=== PATIENT | male | born 1965 | race Caucasian/White ===

== ENCOUNTER 2023-03-05 09:42 | Observation (INO) | payer MEDICAID, SELFPAY ==
[2023-03-05 09:48] VITALS: BP 145/76; PULSE 69; RESP 19; TEMP 36.6; O2SAT 98; BMI 31.1
--- NOTE | 2023-03-05 10:16 | ECG_ITS ---
Test Reason : check cardiac status Blood Pressure : / mmHG Vent. Rate : 069 BPM Atrial Rate : 069 BPM P-R Int : 162 ms QRS Dur : 136 ms QT Int : 464 ms P-R-T Axes : 033 056 -02 degrees QTc Int : 497 ms Sinus rhythm with Premature supraventricular complexes Right bundle branch block Abnormal ECG No previous ECGs available Referred By: Generic ED Physician Electronically Signed By:Chinmay Olguin
[2023-03-05 10:29] LABS: MANUAL DIFF FLAG NO
[2023-03-05 10:32] LABS: Basophils Percent Auto 0.1 % (0-2); Eosinophils Absolute Auto 0.2 X10*3/uL (0.0-0.4); Eosinophils Percent Auto 2.2 % (0-4); Hematocrit 32.4 % (42.0-52.0); Hemoglobin 9.4 g/dl (14.0-18.0); Imm Gran Abs Auto 0.05 X10*3/uL (0.00-0.03); Imm Gran Pct Auto 0.6 % (0.0-0.4); Lymphocytes Absolute Auto 0.8 X10*3/uL (1.2-4.9); Lymphocytes Percent Auto 9.2 % (20-40); Mean Corpuscular Hemoglobin 29.5 pg (27.0-33.0); Mean Corpuscular Volume 101.6 fL (80.0-98.0); Mean Platelet Volume 9.6 fL (9.4-12.4); Monocytes Absolute Auto 0.6 X10*3/uL (0.1-1.2); Monocytes Percent Auto 6.3 % (2-11); Neutrophils Absolute Auto 7.1 x10*3/uL (2.0-8.3); Neutrophils Percent Auto 81.6 % (45-73); Platelet Count 139 X10*3/uL (160-400); Red Blood Count 3.19 X10*6/uL (4.60-5.80); Red Cell Distribution Width 19.8 % (11.0-16.0); White Blood Count 8.7 X10*3/uL (4.8-10.8)
[2023-03-05 10:40] LABS: INTERNATIONAL NORM RATIO 0.9 (0.9-1.1); Prothrombin Time 10.5 SEC (10.0-13.1)
[2023-03-05 10:48] VITALS: BP 137/74; PULSE 116; RESP 18; TEMP 36.9; O2SAT 96
--- NOTE | 2023-03-05 10:49 | PC.NURSE ---
Alert and oriented. 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 States is due for treatment today but does not have anywhere to go to get dialyisis. VSS. states that he feels fine is just worried about missing the treatment. is a new dialysis patient (started 3 weeks ago). Reports has full supply of all medications he was taking in [place].
[2023-03-05 10:58] LABS: Anion Gap 15 (12-20); Blood Urea Nitrogen 61 mg/dL (9-16); Carbon Dioxide 24 mmol/L (22-29); Chloride 107 mmol/L (96-108); Creatinine Clr Calc Pharmacy 28.1; Estimated Glomerular Filt Rate 17; Glucose Random 142 mg/dL (60-115); Potassium 5.3 mmol/L (3.3-5.1); Sodium 141 mmol/L (135-145)
--- NOTE | 2023-03-05 11:20 | ED.GENADULT ---
HPI - General Adult General Chief complaint: General Medical Stated complaint: Needs Dialysis Time Seen by Provider: 03/05/23 11:19 Source: patient Mode of arrival: ambulatory Limitations: no limitations History of Present Illness HPI narrative: Patient is a 57 year old assigned male at with a history of CKD on dialysis presenting to the emergency department today requesting to be dialyzed. Patient states that he moved to the area from [place] and has not set up with a production operations manager for his dialysis. Patient states that he feels OK, he just dialyzed on 03/05/2023. Patient denies any dizziness, lightheadedness, abdominal pain, nausea, vomiting, fever, chills, blurry vision, double vision, loss of vision, chest pain, difficulty breathing, shortness of breath, back pain, night sweats, pain with urination, increased urinary frequency, increased urinary urgency, blood in his urine or stool, syncope or a near syncopal episode, recent trauma or falls, bowel incontinence, bladder incontinence, bowel retention, bladder retention, or any other complaints at this time. Relieving factors: none Exacerbating factors: none Associated symptoms: denies other symptoms Treatments prior to arrival: none Related Data Allergies Allergy/AdvReac Type Severity Reaction Status Date / Time No Known Allergies Allergy Verified 03/05/23 09:47 Review of Systems Constitutional: Constitutional: Reports no additional constitutional complaints, Denies chills, Denies fever(s) and Denies night sweats Eyes: Eyes: Reports no additional eye complaints, Denies blurry vision, Denies change in vision, Denies diplopia, Denies eye discharge, Denies loss of vision and Denies eye pain ENT: Denies dizziness Cardiovascular: Cardiovascular: Reports no additional cardiovascular complaints, Denies chest pain, Denies lightheadedness, Denies Loss of Consciousness and Denies dyspnea Respiratory: Respiratory: Reports no additional respiratory complaints and Denies dyspnea Gastrointestinal: Gastrointestinal: Reports no additional gastrointestinal complaints, Denies abdominal pain, Denies melena, Denies hematochezia, Denies change in bowel habits and Denies change in stool character Genitourinary: Genitourinary: Reports no additional male genitourinary complaints, Denies hematuria, Denies oliguria, Denies difficulty urinating, Denies dysuria, Denies urinary frequency, Denies urinary hesitancy, Denies urinary incontinence and Denies urinary urgency Musculoskeletal: Musculoskeletal: Reports no additional musculoskeletal complaints, Denies numbness and Denies tingling Neurologic: Denies dizziness, Denies loss of vision, Denies numbness and Denies tingling Psychiatric: Psychiatric: Reports no additional psychiatric complaints Endocrine: Endocrine: Reports no additional endocrine complaints Hematologic/Lymphatic: Hematologic/Lymphatic: Reports no additional hematologic/lymphatic complaints Allergic/Immunologic: Allergic/Immunologic: Reports no additional allergic/immunologic complaints PMFSH Past Medical History Attestation statement: The following information was validated with the patient. Source: old records reviewed and nursing notes reviewed Social History Social History Alcohol intake: former Smoked in Last 30 Days: No Use of substances other than those prescribed or required for medical reasons: Yes Substance Use Type: Marijuana Substance Use Frequency: Occasionally Advance Directives: Yes Advance Directives Information Provided: Yes Advance Directives on File: No Physical Exam ED Vital Signs: Vital Signs - 24 hr 03/05/23 09:48 03/05/23 10:48 Temperature 98 F 98.5 F Pulse Rate 69 116 H Respiratory Rate 19 18 Blood Pressure 145/76 H 137/74 Pulse Oximetry 98 96 Oxygen Delivery Method Room Air Room Air BMI result Body Mass Index 31.1 Const General: cooperative, no acute distress, alert and awake Nutritional Appearance: well nourished Orientation/consciousness: patient oriented x3 Limitations: no limitations HENMT Head: Yes normal to inspection and Yes atraumatic Ears: hearing grossly normal bilaterally and external ears normal General nose exam: Normal external nose present, no nasal discharge noted and no epistaxis Face and sinus: Yes normal facial exam, No abrasion and No laceration Mouth: Normal oral and palatal mucosa present, no drooling and no muffled voice Eyes General: appearance normal, both eyes and all related structures Periorbital: periorbital findings normal Eyelids: Yes eyelids normal Conjunctivae: conjunctivae normal Pupils: Equal, round and reactive pupils present EOM: EOMs intact bilaterally Neck Neck: Yes normal visual inspection, Yes full ROM and Yes no lymphadenopathy Chest Other: dialysis catheter present to the upper right chest Resp Effort & Inspection: normal respiratory effort and able to speak in complete sentences GI Inspection: Yes normal to inspection Palpation (GI): Soft to palpation, not firm, nontender and no guarding Neuro General: patient oriented x3 and moves all extremities Cranial nerves: Yes Equal, round and reactive pupils present Cognition (Neuro): normal cognition Motor exam (neuro): 5/5 motor strength present throughout Sensory Exam: Normal double simultaneous stimulation for sensation Coordination: [id number] test normal Extrem General: Yes normal to inspection, Yes full ROM and Yes capillary refill normal Psych Appearance: grossly normal Mental Status: mental status grossly normal Affect: normal affect Attitude: cooperative Thought process: Normal thought process present Thought content: Normal thought content present Insight: Good insight present (Psych) Medical Decision Making Medical Decision Making MDM Narrative: Patient is a 57 year old assigned male at with a history of CKD on dialysis presenting to the emergency department today in need of dialysis. Patient's physical exam was unremarkable. Patient's blood work showed an elevated potassium of 5.3, BUN of 61, CR of 3.65, and a hgb of 9.4. I interpret these labs as being consistent with an individual requiring dialysis. I called and spoke to the production operations manager airline reservationist who recommended hospital admission under medicine for dialysis. I spoke to the hospitalist who agreed to admission. Patient's EKG was unremarkable. I explained my physical exam findings as well as all test results to the patient. I answered all questions asked by the patient. Patient verbalized agreement and understanding with this treatment plan and admission. Differential Diagnosis Differential Diagnoses: The differential diagnosis associated with the presentation includes Kidney disease Kidney failure Chronic kidney disease Metabolic acidosis Kidney injury Admission/Observation Consideration of admission/observation: Escalation of care including admission/observation considered Patient to be admitted. Consult Healthcare Provider Management of the patient was discussed with: Hospitalist (agreed to admission.) and Metal Expediter (spoke to production operations manager as noted in the MDM portion of this chart.) Lab Data [facility] Lab Attestation statement: I reviewed the patient's lab results. Patient's labs interpreted in the MDM portion of this chart. 03/05/23 10:25 03/05/23 10:25 Labs: Lab Results 03/05/23 03/05/23 03/05/23 Range/Units 10:25 10:25 10:25 WBC 8.7 (4.8-10.8) X10*3/uL RBC 3.19 L (4.60-5.80) X10*6/uL Hgb 9.4 L (14.0-18.0) g/dl Hct 32.4 L (42.0-52.0) % MCV 101.6 H (80.0-98.0) fL MCH 29.5 (27.0-33.0) pg MCHC 29.0 L (31.0-36.0) g/dl RDW 19.8 H (11.0-16.0) % Plt Count 139 L (160-400) X10*3/uL MPV 9.6 (9.4-12.4) fL Immature Gran % (Auto) 0.6 H (0.0-0.4) % Neut % (Auto) 81.6 H (45-73) % Lymph % (Auto) 9.2 L (20-40) % [place] % (Auto) 6.3 (2-11) % Eos % (Auto) 2.2 (0-4) % Baso % (Auto) 0.1 (0-2) % Lymph # (Auto) 0.8 L (1.2-4.9) X10*3/uL [place] # (Auto) 0.6 (0.1-1.2) X10*3/uL Eos # (Auto) 0.2 (0.0-0.4) X10*3/uL Baso # (Auto) 0.0 (0.0-0.2) X10*3/uL Abs Immat Gran (auto) 0.05 H (0.00-0.03) X10*3/uL Absolute Neuts (auto) 7.1 (2.0-8.3) x10*3/uL Absolute Nucleated RBC 0.000 (0.0-0.012) X10*3/uL Nucleated RBC % (auto) 0.0 (0.0-0.2) /100WBC PT 10.5 (10.0-13.1) SEC INR 0.9 (0.9-1.1) Sodium 141 (135-145) mmol/L Potassium 5.3 H (3.3-5.1) mmol/L Chloride 107 (96-108) mmol/L Carbon Dioxide 24 (22-29) mmol/L Anion Gap 15 (12-20) BUN 61 H (9-16) mg/dL Creatinine 3.65 H (0.5-1.4) mg/dL Estim Creat Clear Calc 28.1 Estimated GFR 17 Random Glucose 142 H (60-115) mg/dL Calcium 9.0 (8.4-10.2) mg/dL Independent Interpretation I performed an independent interpretation of an: EKG Interpretation: Vent. Rate: 069 BPM ? ? Atrial Rate: 069 BPM P-R Int: 162 ms? QRS Dur: 136 ms QT Int: 464 ms ? ? ? P-R-T Axes: 033 056 -02 degrees QTc Int: 497 ms ? Sinus rhythm with Premature supraventricular complexes Right bundle branch block Abnormal ECG No previous ECGs available DD/ 1016 Chronic Conditions Patient?s care impacted by: Other (chronic kidney disease) Critical Care Time Critical Care Time Critical Care Time: Yes Total Critical Care Time: 30 Attestation: I spent 30 minutes of Critical Care Time with this patient. This does not include time spent on separately reported billable procedures. Discharge Plan Discharge Clinical Impression: Chronic kidney disease Patient Disposition: Admitted As Inpatient
--- NOTE | 2023-03-05 13:23 | P.HPHOSP_ITS ---
History of Present Illness Date of Service: 03/05/23 Attending physician on admission: Bong Tran Chief Complaint: Need for dialysis Pt is a 57-year-old male with a PMH significant for?HTN, insulin-dependent diabetes, AFib, COPD, and ESRD on hemodialysis Sat//Sat who presents to the ED in need of dialysis. Pt recently moved to the area on Saturday from [place], [place]. Patient is newly started on hemodialysis the last couple of weeks, last hemodialysis was on Saturday03/02/2023 in [place]. Patient has yet to establish any medical care in the area. Patient currently has no medical complaints. Denies chest pain/pressure, palpitations. No headache, vision changes. Denies shortness of breath. No tremors, seizures. Denies fever, chills nausea, vomiting, diarrhea, abdominal pain. In the ED labs were significant for macrocytic anemia of H&H 9.4/32.4, potassium 5.3, BUN 61, creatinine 3.65. EKG demonstrated sinus rhythm with PVCs and a right bundle branch block with QTc of 497. Pt will be admitted to the hospital for treatment of urgent dialysis. Review of Systems Review of Systems: Patient need of dialysis today Otherwise no acute medical complaints PMFSH Social History Household Members: Family Housing: House Do you presently have visiting nurse or other home services: No Alcohol intake: former Patient Tobacco Use Status: Former Tobacco user Smoked in Last 30 Days: No Use of substances other than those prescribed or required for medical reasons: Yes Substance Use Type: Marijuana Substance Use Type Other:: edibles Substance Use Frequency: Occasionally Currently Displaying Signs/Symptoms of Drug Intoxication Withdrawal: No Any prior treatment program specific to substance use: No Have you been hit, kicked, punched, or otherwise hurt by someone within the past year? If so, by whom?: No Do you feel safe in your current relationship?: No Is there a partner from a previous relationship who is making you feel unsafe now?: No Are you made to feel afraid or neglected: No Advance Directives: Yes Advance Directives Information Provided: Yes Advance Directives on File: No Advance Directives Date on File: 03/05/23 Do you have thoughts of harming others: None Recently lost weight without trying: No service: No Meds Allergies Allergy/AdvReac Type Severity Reaction Status Date / Time No Known Allergies Allergy Verified 03/05/23 09:47 Active Medications: Current Medications Pharmacy Consult (Consult Rx Perform Med Rec) 1 each MISCELLANE ONCE PRN PRN Reason: Consult order Home Medications Medication Instructions Recorded Confirmed Last Taken Type albuterol sulfate 90 mcg/actuation 2 puff inhalation Q6H PRN 03/05/23 03/05/23 Unknown History aerosol inhaler (ProAir HFA) Shortness Of Breath amlodipine 5 mg tablet 5 mg PO DAILY 03/05/23 03/05/23 03/05/23 History apixaban 2.5 mg tablet (Eliquis) 2.5 mg PO BID 03/05/23 03/05/23 03/05/23 History aspirin 81 mg tablet,delayed 81 mg PO DAILY 03/05/23 03/05/23 03/05/23 History release atorvastatin 40 mg tablet 40 mg PO BEDTIME 03/05/23 03/05/23 03/04/23 History cholecalciferol (vitamin D3) 50 50 mcg PO DAILY 03/05/23 03/05/23 03/05/23 History mcg (2,000 unit) tablet cyanocobalamin (vitamin B-12) 1,000 mcg PO DAILY 03/05/23 03/05/23 03/05/23 History 1,000 mcg tablet folic acid 1 mg tablet 1 mg PO DAILY 03/05/23 03/05/23 03/05/23 History guaifenesin 600 mg tablet, 600 mg PO Q12H PRN Cough 03/05/23 03/05/23 03/05/23 History extended release 12 hr insulin detemir U-100 100 unit/mL 10 unit subcut BEDTIME 03/05/23 03/05/23 03/04/23 History subcutaneous solution metoprolol succinate 50 mg 50 mg PO DAILY 03/05/23 03/05/23 03/05/23 History tablet,extended release 24 hr prednisone 10 mg tablet 10 mg PO DAILY 03/05/23 03/05/23 03/05/23 History Physical Exam Vital Signs and Narrative: Vital Signs: Last Vital Signs Temp 98.5 F 03/05/23 10:48 Pulse 116 H 03/05/23 10:48 Resp 18 03/05/23 10:48 BP 137/74 03/05/23 10:48 Pulse Ox 96 03/05/23 10:48 O2 Del Method Room Air 03/05/23 10:48 BMI result Body Mass Index 31.1 Constitutional: Alert, in no acute distress. Mental Status: Oriented to person, place and time. Eyes: Pupils are equal, round, and reactive to light. Ear, Nose, and Throat: Oropharynx clear, mucous membranes moist. Ears and nose without deformities. Trachea midline. Respiratory: Clear to auscultation bilaterally. No wheezing, rales, or rhonchi. Cardiovascular: S1, S2 regular. No murmurs, rubs, or gallops. Gastrointestinal: Abdomen soft, non-tender, non-distended. Normal bowel sounds. Neurologic: Cranial nerves II-XII are grossly intact bilaterally. No focal neurological deficits. Moves all extremities spontaneously. Skin: No rashes or lesions noted. Musculoskeletal: No cyanosis or clubbing. Extremities: No edema. Psychiatric: Normal mood and affect. Results Labs 03/05/23 10:25 03/05/23 10:25 Labs: Laboratory Results - last 24 hr 03/05/23 03/05/23 03/05/23 10:25 10:25 10:25 MCV 101.6 H MCH 29.5 MCHC 29.0 L RDW 19.8 H Plt Count 139 L MPV 9.6 Immature Gran % (Auto) 0.6 H Neut % (Auto) 81.6 H Lymph % (Auto) 9.2 [place] % (Auto) 6.3 Eos % (Auto) 2.2 Baso % (Auto) 0.1 Lymph # (Auto) 0.8 [place] # (Auto) 0.6 Eos # (Auto) 0.2 Baso # (Auto) 0.0 Abs Immat Gran (auto) 0.05 H Absolute Neuts (auto) 7.1 Absolute Nucleated RBC 0.000 Nucleated RBC % (auto) 0.0 PT 10.5 INR 0.9 Anion Gap 15 Estim Creat Clear Calc 28.1 Estimated GFR 17 Random Glucose 142 H Calcium 9.0 Assessment and Plan (1) ESRD (end stage renal disease): Status: Acute Plan Pt is a 57-year-old male with a PMH significant for?HTN, insulin-dependent diabetes, AFib, COPD, and ESRD on hemodialysis Sat//Sat who presents to the ED in need of dialysis. Pt recently moved to the area on Saturday from [place], [place]. Patient is newly started on hemodialysis the last couple of weeks, last hemodialysis was on Saturday03/02/2023 in [place]. Patient has yet to establish any medical care in the area. Patient currently has no medical complaints. Patient will be admitted to the hospital under observation for hemodialysis secondary to ESRD. ESRD on hemodialysis Patient has been receiving dialysis on //Sat, started a few weeks ago Last received dialysis on 03/02/2023 in [place], [place] Patient moved here on Saturday and has not yet established Nephrology care Potassium 5.3, BUN 61, creatinine 3.65 Patient will receive dialysis today Nephrology counsult Pt should establish nephrology/dialysis care in the area outpatient HTN Continue home meds Insulin-dependent diabetes Hold home meds Sliding-scale insulin, Lantus AFib Continue metoprolol, Eliquis COPD Does not appear to be in acute exacerbation Continue home inhalers Full Code Attending:?Dr. Tran DVT Prophylaxis: On Patient will be admitted to the hospital under observation for hemodialysis secondary to ESRD. Time Spent With Patient Time: Total time managing care of this patient today ____ minutes. Quality Stroke Does the patient have a stroke diagnosis?: No VTE Prior VTE?: No VTE Risk Level:: Medical - moderate - high VTE Device Contraindication: Treatment Not Indicated VTE Drug Contraindication: N/A - Med Ordered
--- NOTE | 2023-03-05 13:42 | PC.NURSE ---
Off unit for dialysis at this time.
--- NOTE | 2023-03-05 15:25 | PC.NURSE ---
Report given to accepting unit
[2023-03-05 17:57] VITALS: BP 117/67; PULSE 67; RESP 14; TEMP 36; O2SAT 96
[2023-03-05 18:02] VITALS: BP 129/82; PULSE 94; RESP 15; TEMP 36.8; O2SAT 94
--- NOTE | 2023-03-05 19:23 | PHA.MEDREC ---
Pharmacy Consult ? Medication Reconciliation Pharmacy has completed the medication reconciliation. Pt's twin brother at bedside, had text pictures of patient's med list. Says he gets medications at [facility] however nothing came up in claim history (pt is from [place]). Verified accuracy with patient
[2023-03-05 19:24] VITALS: BP 135/65; PULSE 62; RESP 14; TEMP 36.3; O2SAT 97
--- NOTE | 2023-03-05 19:50 | PC.NURSE ---
Pt admitted from Dialysis. Admission completed. Patient alert and oriented x 4. VSS afebrile. technical instructor applied Sinus rhythm with PVC's. Denies any pain. Right chest permacath noted. No IV access, pt states that he is going home tomorrow and doesn't know why he got admitted in the first place. Refusing IV at this time. Calm and pleasant. Ambulating with steady gait. Denies headache dizziness blurred vision numbness or tingling. Started on diet tolerating well. Call king at bedside, safety maintained. Report given to night RN to follow up.
[2023-03-05 23:26] VITALS: BP 132/62; PULSE 71; RESP 18; TEMP 36.9; O2SAT 95
[2023-03-06 03:05] VITALS: BP 112/55; PULSE 70; RESP 20; TEMP 36.8; O2SAT 95
[2023-03-06 05:41] LABS: HBS Num1 0.06 mIU/mL (0-7.99); HBc Num1 0.09 S/CO (0.00-0.79); HBsAGNum1 0.32 S/CO (0.00-0.99); Hepatitis B Core Antibody Nonreactive (Nonreactive); Hepatitis B Surface Antigen Negative (Negative); ~Hepatitis B Surface Antibody NONREACTIVE (Nonreactive)
[2023-03-06 06:47] LABS: Hematocrit 30.4 % (42.0-52.0); Hemoglobin 9.1 g/dl (14.0-18.0); Mean Corpuscular HGB Conc 29.9 g/dl (31.0-36.0); Mean Corpuscular Hemoglobin 29.5 pg (27.0-33.0); Mean Corpuscular Volume 98.7 fL (80.0-98.0); Mean Platelet Volume 10.1 fL (9.4-12.4); Platelet Count 133 X10*3/uL (160-400); Red Blood Count 3.08 X10*6/uL (4.60-5.80); Red Cell Distribution Width 19.5 % (11.0-16.0); White Blood Count 7.4 X10*3/uL (4.8-10.8)
[2023-03-06 07:08] VITALS: BP 148/78; PULSE 66; RESP 20; TEMP 36.9; O2SAT 94
[2023-03-06 07:13] LABS: Anion Gap 12 (12-20); Blood Urea Nitrogen 43 mg/dL (9-16); Calcium 8.3 mg/dL (8.4-10.2); Carbon Dioxide 24 mmol/L (22-29); Chloride 105 mmol/L (96-108); Creatinine Clr Calc Pharmacy 36.8; Estimated Glomerular Filt Rate 24; Glucose Random 106 mg/dL (60-115); Magnesium 1.7 mg/dL (1.6-2.6); Potassium 4.2 mmol/L (3.3-5.1); Sodium 137 mmol/L (135-145)
[2023-03-06 08:11] LABS: Glucose, Whole Blood 117 mg/dL (60-115)
[2023-03-06] MEDS: Cyanocobalamin (Vitamin B-12) 1,000 MCG TABLET 1000 MCG PO (08:15)
[2023-03-06] MEDS: Cholecalciferol (Vitamin D3) 25 MCG TABLET 50 MCG PO (08:15)
[2023-03-06] MEDS: amLODIPine Besylate 5 MG TABLET PO (08:15)
[2023-03-06] MEDS: Apixaban 2.5 MG TABLET PO ×2 (08:15→22:14)
[2023-03-06] MEDS: Metoprolol Succinate ER 50 MG TAB.ER.24H PO (08:15)
[2023-03-06] MEDS: Aspirin Enteric Coated 81 MG TABLET.DR PO (08:15)
[2023-03-06] MEDS: Folic Acid 1 MG TABLET PO (08:15)
[2023-03-06] MEDS: predniSONE 10 MG TABLET PO (08:15)
[2023-03-06] MEDS: 0.9 % Sodium Chloride Flush 3 ML SYRINGE IVFLUSH (08:16)
--- NOTE | 2023-03-06 08:50 | MHC.CM.PN ---
CM met with Patient at bedside and addressed DICKEY with him, providing Patient with the original and placing a copy on the chart. Patient moved here from [place] on 03/04/2023 and he will need new HD set up prior to dc. Patient is living with his Brother/HCP and [id number] and he is functionally independent. Home with new HD is the goal and CM has initiated and will follow for dc planning. Patient is Covid kary'berto and he has no PCP(CM has provided Patient with a list of area PCPs).
--- NOTE | 2023-03-06 10:39 | P.CONNP_ITS ---
History of Present Illness Reason for Consult Consult date: 03/07/23 Reason for consult: CKD5 Chief Complaint Chief complaint: Dialysis History of Present Illness Narrative: ?57-year-old male with a PMH significant for?HTN, insulin-dependent diabetes, AFib, COPD, and ESRD on hemodialysis Sat//Sat who presents to the ED in need of dialysis. Pt recently moved to the area on Saturday from [place], [place].? Patient is newly started on hemodialysis the last couple of weeks, last hemodialysis was on Saturday03/02/2023 in [place].? Patient has yet to establish any medical care in the area.? Patient currently has no medical complaints He is a history of coronary artery disease and underwent stent placement about 5 years ago. At that time he was diagnosed with diabetes mellitus and hypertension. Along the way he was found to have chronic kidney disease. He has undergone extensive workup including kidney biopsy which reportedly was inconclusive. Renal function has been gradually deteriorating and he was started on dialysis about 3 weeks ago in [facility]. He is a history of diverticulosis and underwent a colostomy. Colostomy has been reversed. He has residual ventral hernia He has moved to this area because he wanted to live with his twin brother in [facility] He underwent dialysis on 03/05/2023 at [facility]. Review of Systems Review of Systems No headache. No nausea vomiting. No abdominal pain. No shortness of breath. No cough. No dysuria urgency or hematuria. No edema. No rash. [facility] Social History Social History Household Members: Family Housing: House Do you presently have visiting nurse or other home services: No Alcohol intake: former Patient Tobacco Use Status: Former Tobacco user Smoked in Last 30 Days: No Use of substances other than those prescribed or required for medical reasons: Yes Substance Use Type: Marijuana Substance Use Type Other:: edibles Substance Use Frequency: Occasionally Currently Displaying Signs/Symptoms of Drug Intoxication Withdrawal: No Any prior treatment program specific to substance use: No Have you been hit, kicked, punched, or otherwise hurt by someone within the past year? If so, by whom?: No Do you feel safe in your current relationship?: No Is there a partner from a previous relationship who is making you feel unsafe now?: No Are you made to feel afraid or neglected: No Advance Directives: Yes Advance Directives Information Provided: Yes Advance Directives on File: No Advance Directives Date on File: 03/05/23 Do you have thoughts of harming others: None Recently lost weight without trying: No service: No Meds Allergies Allergy/AdvReac Type Severity Reaction Status Date / Time No Known Allergies Allergy Verified 03/05/23 09:47 Active Medications: Current Medications Acetaminophen (Acetaminophen 325 Mg Tablet) 650 mg PO Q6H PRN PRN Reason: Pain, Mild (Pain Scale 1-3) Albuterol Sulfate (Albuterol Sulfate 90 Mcg 8 Gm Inhaler) 2 puff INHALE Q6H PRN PRN Reason: Shortness Of Breath Amlodipine Besylate (Amlodipine Besylate 5 Mg Tablet) 5 mg PO DAILY [facility]; Protocol Last Admin: 03/06/23 08:15 Dose: 5 mg Apixaban (Apixaban 2.5 Mg Tablet) 2.5 mg PO BID [facility] Last Admin: 03/06/23 08:15 Dose: 2.5 mg Aspirin (Aspirin Enteric Coated 81 Mg Tablet.Dr) 81 mg PO DAILY [facility] Last Admin: 03/06/23 08:15 Dose: 81 mg Atorvastatin Calcium (Atorvastatin Calcium 40 Mg Tablet) 40 mg PO BEDTIME [facility] Cyanocobalamin (Cyanocobalamin (Vitamin B-12) 1,000 Mcg Tablet) 1,000 mcg PO DAILY [facility] Last Admin: 03/06/23 08:15 Dose: 1,000 mcg Dextrose (Dextrose 50 % 25 Gm/50 Ml Syringe) 25 gm IVPUSH Q15M PRN; Protocol PRN Reason: per Hypoglycemia Standing Ord. Docusate Sodium (Docusate Sodium 100 Mg Capsule) 100 mg PO DAILY PRN PRN Reason: Constipation Folic Acid (Folic Acid 1 Mg Tablet) 1 mg PO DAILY [facility] Last Admin: 03/06/23 08:15 Dose: 1 mg Glucose (Glucose Gel 15 Gm Gel..Gram.) 15 gm PO Q15M PRN; Protocol PRN Reason: per Hypoglycemia Standing Ord. Guaifenesin (Guaifenesin La 600 Mg Tab.Er.12h) 600 mg PO Q12H PRN PRN Reason: Cough Insulin Glargine (Insulin Glargine,Hum.Rec.Anlog 100 Unit/Ml 10 Ml Vial) 7 unit SUBCUT BEDTIME [facility] Insulin Human Lispro (Insulin Lispro 100 Unit/Ml 3 Ml Vial) 0 unit SUBCUT QIDACHS [facility]; Protocol Metoprolol Succinate (Metoprolol Succinate Er 50 Mg Tab.Er.24h) 50 mg PO DAILY [facility]; Protocol Last Admin: 03/06/23 08:15 Dose: 50 mg Ondansetron HCl (Ondansetron Hcl 4 Mg/2 Ml Vial) 4 mg IVPUSH Q8H PRN PRN Reason: Nausea and Vomiting Pharmacy Consult (Consult Rx Perform Med Rec) 1 each MISCELLANE ONCE PRN PRN Reason: Consult order Prednisone (Prednisone 10 Mg Tablet) 10 mg PO DAILY [facility] Last Admin: 03/06/23 08:15 Dose: 10 mg Sodium Chloride (0.9 % Sodium Chloride Flush 3 Ml Syringe) 3 ml IVFLUSH QSHIFT [facility] Last Admin: 03/06/23 08:16 Dose: 3 ml Vitamin D (Cholecalciferol (Vitamin D3) 25 Mcg Tablet) 50 mcg PO DAILY [facility] Last Admin: 03/06/23 08:15 Dose: 50 mcg Home Medications Medication Instructions Recorded Confirmed Last Taken Type albuterol sulfate 90 mcg/actuation 2 puff inhalation Q6H PRN 03/05/23 03/05/23 Unknown History aerosol inhaler (ProAir HFA) Shortness Of Breath amlodipine 5 mg tablet 5 mg PO DAILY 03/05/23 03/05/23 03/05/23 History apixaban 2.5 mg tablet (Eliquis) 2.5 mg PO BID 03/05/23 03/05/23 03/05/23 History aspirin 81 mg tablet,delayed 81 mg PO DAILY 03/05/23 03/05/23 03/05/23 History release atorvastatin 40 mg tablet 40 mg PO BEDTIME 03/05/23 03/05/23 03/04/23 History cholecalciferol (vitamin D3) 50 50 mcg PO DAILY 03/05/23 03/05/23 03/05/23 History mcg (2,000 unit) tablet cyanocobalamin (vitamin B-12) 1,000 mcg PO DAILY 03/05/23 03/05/23 03/05/23 History 1,000 mcg tablet folic acid 1 mg tablet 1 mg PO DAILY 03/05/23 03/05/23 03/05/23 History guaifenesin 600 mg tablet, 600 mg PO Q12H PRN Cough 03/05/23 03/05/23 03/05/23 History extended release 12 hr insulin detemir U-100 100 unit/mL 10 unit subcut BEDTIME 03/05/23 03/05/23 03/04/23 History subcutaneous solution metoprolol succinate 50 mg 50 mg PO DAILY 03/05/23 03/05/23 03/05/23 History tablet,extended release 24 hr prednisone 10 mg tablet 10 mg PO DAILY 03/05/23 03/05/23 03/05/23 History Physical Exam Vital Signs: Last Vital Signs Temp 98.5 F 03/06/23 07:08 Pulse 66 03/06/23 07:08 Resp 20 03/06/23 07:08 BP 148/78 H 03/06/23 07:08 Pulse Ox 94 03/06/23 07:08 O2 Del Method Room Air 03/06/23 07:08 O2 Flow Rate 40 03/05/23 18:02 FiO2 40 03/05/23 18:02 BMI result Body Mass Index 31.1 Comfortable Neck is supple Lung: Air entry equal Heart: S1,S2, normal. No rub Abd: Soft. BS + NS : Alert.No asterexis Ext: 1+ edema Results Lab Results 03/06/23 06:20 03/06/23 06:20 Lab results: Chemistry 03/05/23 03/06/23 10:25 06:20 Sodium 141 137 Potassium 5.3 H 4.2 D Carbon Dioxide 24 24 BUN 61 H 43 H Creatinine 3.65 H 2.79 H Calcium 9.0 8.3 L D Hematology 03/05/23 03/06/23 10:25 06:20 WBC 8.7 7.4 Hgb 9.4 L 9.1 L Plt Count 139 L 133 L Assessment and Plan (1) ESRD (end stage renal disease): Status: Acute (2) Chronic kidney disease: Status: Acute Plan Middle-aged man with a history of hypertension diabetes mellitus coronary disease who was recently started on hemodialysis about 3 weeks ago in [facility] has moved to the area and is in need for dialysis. At this point the exact etiology for renal failure is unclear. 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 In the meantime we will continue with hemodialysis. I will try to arrange for dialysis 3 times a week. Last dialysis was on 03/05/2020 Next dialysis will be tomorrow 03/07/2023. We will watch hemoglobin and use Epogen as per protocol. We will check calcium and phosphorus and use phosphate binder if indicated. I have answer all his questions. Time Spent With Patient Time: Total time managing care of this patient today ____ minutes. Procedures Date of Service Date of Service: 03/07/23
[2023-03-06 10:58] LABS: Glucose, Whole Blood 127 mg/dL (60-115)
[2023-03-06 11:13] VITALS: BP 156/90; PULSE 68; RESP 20; TEMP 37.7; O2SAT 95
--- NOTE | 2023-03-06 14:32 | MHC.CM.PN ---
A referral has been made to [facility] [place]/t Patient's self-pay status.
--- NOTE | 2023-03-06 15:19 | P.PNIM_ITS ---
Subjective Subjective Date of Service: 03/06/23 Interval History: ESRD on hemodialysis. Review of Systems Patient denies any chest pain shortness of breath or abdominal pain or nausea vomiting or fever chills. Physical Exam Vital Signs: Vital Signs: Last Vital Signs Temp 99.9 F 03/06/23 11:13 Pulse 68 03/06/23 11:13 Resp 20 03/06/23 11:13 BP 156/90 H 03/06/23 11:13 Pulse Ox 95 03/06/23 11:13 O2 Del Method Room Air 03/06/23 11:13 O2 Flow Rate 40 03/05/23 18:02 FiO2 40 03/05/23 18:02 BMI result Body Mass Index 31.1 Appearance: Alert.? Oriented X3.? not in distress.? cvs: [id number], [id number] . res: clear to auscultation ,no rhonchii or wheezing abd: no rebound or guarding ,nt, bs present. ext pulses present , no cyanosis . neuro: axo3 , nonfocal. Objective Data Active Medications Acetaminophen (Acetaminophen 325 Mg Tablet) 650 mg PO Q6H PRN PRN Reason: Pain, Mild (Pain Scale 1-3) Albuterol Sulfate (Albuterol Sulfate 90 Mcg 8 Gm Inhaler) 2 puff INHALE Q6H PRN PRN Reason: Shortness Of Breath Amlodipine Besylate (Amlodipine Besylate 5 Mg Tablet) 5 mg PO DAILY [facility]; Protocol Last Admin: 03/06/23 08:15 Dose: 5 mg Documented By: ALEXANDR Apixaban (Apixaban 2.5 Mg Tablet) 2.5 mg PO BID [facility] Last Admin: 03/06/23 08:15 Dose: 2.5 mg Documented By: ALEXANDR Aspirin (Aspirin Enteric Coated 81 Mg Tablet.) 81 mg PO DAILY [facility] Last Admin: 03/06/23 08:15 Dose: 81 mg Documented By: ALEXANDR Atorvastatin Calcium (Atorvastatin Calcium 40 Mg Tablet) 40 mg PO BEDTIME [facility] Cyanocobalamin (Cyanocobalamin (Vitamin B-12) 1,000 Mcg Tablet) 1,000 mcg PO DAILY [facility] Last Admin: 03/06/23 08:15 Dose: 1,000 mcg Documented By: ALEXANDR Dextrose (Dextrose 50 % 25 Gm/50 Ml Syringe) 25 gm IVPUSH Q15M PRN; Protocol PRN Reason: per Hypoglycemia Standing Ord. Docusate Sodium (Docusate Sodium 100 Mg Capsule) 100 mg PO DAILY PRN PRN Reason: Constipation Folic Acid (Folic Acid 1 Mg Tablet) 1 mg PO DAILY [facility] Last Admin: 03/06/23 08:15 Dose: 1 mg Documented By: ALEXANDR Glucose (Glucose Gel 15 Gm Gel..Gram.) 15 gm PO Q15M PRN; Protocol PRN Reason: per Hypoglycemia Standing Ord. Guaifenesin (Guaifenesin La 600 Mg Tab.Er.12h) 600 mg PO Q12H PRN PRN Reason: Cough Insulin Glargine (Insulin Glargine,Hum.Rec.Anlog 100 Unit/Ml 10 Ml Vial) 7 unit SUBCUT BEDTIME [facility] Insulin Human Lispro (Insulin Lispro 100 Unit/Ml 3 Ml Vial) 0 unit SUBCUT QIDACHS [facility]; Protocol Last Admin: 03/06/23 11:26 Dose: Not Given Documented By: ALEXANDR Non-Admin Reason: No Insulin Coverage Metoprolol Succinate (Metoprolol Succinate Er 50 Mg Tab.Er.24h) 50 mg PO DAILY [facility]; Protocol Last Admin: 03/06/23 08:15 Dose: 50 mg Documented By: ALEXANDR Ondansetron HCl (Ondansetron Hcl 4 Mg/2 Ml Vial) 4 mg IVPUSH Q8H PRN PRN Reason: Nausea and Vomiting Pharmacy Consult (Consult Rx Perform Med Rec) 1 each MISCELLANE ONCE PRN PRN Reason: Consult order Prednisone (Prednisone 10 Mg Tablet) 10 mg PO DAILY [facility] Last Admin: 03/06/23 08:15 Dose: 10 mg Documented By: ALEXANDR Sodium Chloride (0.9 % Sodium Chloride Flush 3 Ml Syringe) 3 ml IVFLUSH QSHIFT [facility] Last Admin: 03/06/23 08:16 Dose: 3 ml Documented By: ALEXANDR Vitamin D (Cholecalciferol (Vitamin D3) 25 Mcg Tablet) 50 mcg PO DAILY [facility] Last Admin: 03/06/23 08:15 Dose: 50 mcg Documented By: ALEXANDR Labs 03/06/23 06:20 03/06/23 06:20 Labs: Laboratory Results - last 24 hr 03/05/23 03/06/23 03/06/23 15:49 06:20 06:20 MCV 98.7 H MCH 29.5 MCHC 29.9 L RDW 19.5 H Plt Count 133 L MPV 10.1 Absolute Nucleated RBC 0.000 Nucleated RBC % (auto) 0.0 Anion Gap 12 Estim Creat Clear Calc 36.8 Estimated GFR 24 POC Glucose Random Glucose 106 Calcium 8.3 L D Magnesium 1.7 Hep Bs Antigen Negative Hep Bs Antibody NONREACTIVE Hep B Core Total Ab Nonreactive 03/06/23 03/06/23 08:07 10:52 MCV MCH MCHC RDW Plt Count MPV Absolute Nucleated RBC Nucleated RBC % (auto) Anion Gap Estim Creat Clear Calc Estimated GFR POC Glucose 117 H 127 H Random Glucose Calcium Magnesium Hep Bs Antigen Hep Bs Antibody Hep B Core Total Ab Assessment and Plan (1) ESRD (end stage renal disease): Status: Acute (2) Chronic kidney disease: Status: Acute Plan 57-year-old male with a PMH significant for?HTN, insulin-dependent diabetes, AFib, COPD, and ESRD on hemodialysis Sat//Sat who presents to the ED in need of dialysis. Pt recently moved to the area on Saturday from [place], [place].? Patient is newly started on hemodialysis the last couple of weeks, last hemodialysis was on Saturday03/02/2023 in [place].? Patient has yet to establish any medical care in the area.? Patient currently has no medical complaints.? Patient will be admitted to the hospital under observation for hemodialysis secondary to ESRD. ESRD on hemodialysis Patient has been receiving dialysis on //Sat, started a few weeks ago Last received dialysis on Sat03/02/2023 in [place], [place] Patient received hemodialysis yesterday, potassium improved to 4.2. Discussed with Nephrology patient will need hemodialysis in the morning and likely needs to be arranged for dialysis spot. HTN Continue home meds Insulin-dependent diabetes Hold home meds Sliding-scale insulin, Lantus AFib Continue metoprolol, Eliquis COPD Does not appear to be in acute exacerbation Continue home inhalers Full Code DVT Prophylaxis:? On Eliquis Ongoing hospitalization need: hemodialysis secondary to ESRd -need HD as well as hemodialysis spot . Time Spent With Patient Time: Total time managing care of this patient today ____ minutes. Quality Stroke Does the patient have a stroke diagnosis?: No VTE Prior VTE?: No VTE Risk Level:: Medical - moderate - high VTE Device Contraindication: Treatment Not Indicated VTE Drug Contraindication: N/A - Med Ordered
[2023-03-06 15:34] VITALS: BP 162/79; PULSE 74; RESP 18; TEMP 37.1; O2SAT 98
[2023-03-06 15:50] LABS: Glucose, Whole Blood 117 mg/dL (60-115)
[2023-03-06 18:43] VITALS: BP 154/78; PULSE 61; RESP 18; TEMP 37.4; O2SAT 97
[2023-03-06 19:06] LABS: Glucose, Whole Blood 109 mg/dL (60-115)
[2023-03-06] MEDS: Atorvastatin Calcium 40 MG TABLET PO (22:14)
[2023-03-06] MEDS: Insulin Glargine,Hum.rec.anlog 100 UNIT/ML 10 ML VIAL 7 UNIT SUBCUT (22:15)
[2023-03-06 22:17] LABS: Glucose, Whole Blood 117 mg/dL (60-115)
[2023-03-06 23:53] VITALS: BP 143/66; PULSE 71; RESP 18; TEMP 37.2; O2SAT 93
[2023-03-07 04:00] VITALS: BP 134/63; PULSE 74; RESP 18; TEMP 37.2; O2SAT 98
[2023-03-07 07:13] LABS: Glucose, Whole Blood 156 mg/dL (60-115)
[2023-03-07] MEDS: Metoprolol Succinate ER 50 MG TAB.ER.24H PO (07:44)
[2023-03-07] MEDS: Cyanocobalamin (Vitamin B-12) 1,000 MCG TABLET 1000 MCG PO (07:44)
[2023-03-07] MEDS: Cholecalciferol (Vitamin D3) 25 MCG TABLET 50 MCG PO (07:44)
[2023-03-07] MEDS: amLODIPine Besylate 5 MG TABLET PO (07:45)
[2023-03-07] MEDS: Apixaban 2.5 MG TABLET PO ×2 (07:45→20:19)
[2023-03-07] MEDS: Folic Acid 1 MG TABLET PO (07:45)
[2023-03-07] MEDS: predniSONE 10 MG TABLET PO (07:45)
[2023-03-07] MEDS: Aspirin Enteric Coated 81 MG TABLET.DR PO (07:45)
[2023-03-07] MEDS: Insulin Lispro 100 UNIT/ML 3 ML VIAL SUBCUT (07:46)
[2023-03-07 08:00] VITALS: BP 143/68; PULSE 62; RESP 20; TEMP 36.9; O2SAT 94
--- NOTE | 2023-03-07 10:03 | P.PNNP_ITS ---
Subjective Subjective Date of Service: 03/09/23 Interval history: ESRD on hemodialysis. Physical Exam Vital Signs: Vital Signs: Last Vital Signs Temp 98.5 F 03/07/23 08:00 Pulse 62 03/07/23 08:00 Resp 20 03/07/23 08:00 BP 143/68 H 03/07/23 08:00 Pulse Ox 94 03/07/23 08:00 O2 Del Method Room Air 03/07/23 08:00 O2 Flow Rate 40 03/05/23 18:02 FiO2 40 03/05/23 18:02 BMI result Body Mass Index 31.1 Comfortable Neck is supple Lung: Air entry equal Heart: S1,S2, normal. No rub Abd: Soft. BS + NS : Alert.No asterexis Ext: No edema Objective Data Labs 03/06/23 06:20 03/06/23 06:20 Labs: Laboratory Results - last 24 hr 03/06/23 03/06/23 03/06/23 10:52 15:19 18:28 POC Glucose 127 H 117 H 109 03/06/23 03/07/23 22:13 07:02 POC Glucose 117 H 156 H Procedures Date of Service Date of Service: 03/09/23 Assessment & Plan Assessment and plan (1) ESRD (end stage renal disease): Status: Acute (2) Chronic kidney disease: Status: Acute Plan Middle-aged man with a history of hypertension diabetes mellitus coronary disease who was recently started on hemodialysis about 3 weeks ago in [facility] has moved to the area and is in need for dialysis. At this point the exact etiology for renal failure is unclear. 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 In the meantime we will continue with hemodialysis. I will try to arrange for dialysis 3 times a week. apparently he has no insurance coverage and this needs to be sorted out We will watch hemoglobin and use Epogen as per protocol. We will check calcium and phosphorus and use phosphate binder if indicated. Time Spent With Patient Time: Total time managing care of this patient today ____ minutes. Progress Note: Quality Stroke Does the patient have a stroke diagnosis?: No
--- NOTE | 2023-03-07 10:28 | MHC.CM.PN ---
Patient has no insurance; [facility] is actively involved. Per /Greta, waiting for ID proofing to go through/takes 2-3 days. CM will follow.
[2023-03-07 11:01] LABS: Glucose, Whole Blood 126 mg/dL (60-115)
[2023-03-07 11:09] VITALS: BP 133/74; PULSE 62; RESP 20; TEMP 36.4; O2SAT 98
--- NOTE | 2023-03-07 13:52 | P.PNIM_ITS ---
Subjective Subjective Date of Service: 03/07/23 Interval History: ESRD on hemodialysis. Review of Systems Patient denies any chest pain shortness of breath or abdominal pain or nausea vomiting or fever chills. Physical Exam Vital Signs: Vital Signs: Last Vital Signs Temp 97.6 F 03/07/23 11:09 Pulse 62 03/07/23 11:09 Resp 20 03/07/23 11:09 BP 133/74 03/07/23 11:09 Pulse Ox 98 03/07/23 11:09 O2 Del Method Room Air 03/07/23 11:09 O2 Flow Rate 40 03/05/23 18:02 FiO2 40 03/05/23 18:02 BMI result Body Mass Index 31.1 Appearance: Alert.? Oriented X3.? not in distress.? cvs: rrr, [id number] . res: clear to auscultation ,no rhonchii or wheezing abd: no rebound or guarding ,nt, bs present. ext pulses present , no cyanosis . neuro: axo3 , nonfocal.? Objective Data Active Medications Acetaminophen (Acetaminophen 325 Mg Tablet) 650 mg PO Q6H PRN PRN Reason: Pain, Mild (Pain Scale 1-3) Albuterol Sulfate (Albuterol Sulfate 90 Mcg 8 Gm Inhaler) 2 puff INHALE Q6H PRN PRN Reason: Shortness Of Breath Amlodipine Besylate (Amlodipine Besylate 5 Mg Tablet) 5 mg PO DAILY [facility]; Protocol Last Admin: 03/07/23 07:45 Dose: 5 mg Documented By: ALEXANDR Apixaban (Apixaban 2.5 Mg Tablet) 2.5 mg PO BID [facility] Last Admin: 03/07/23 07:45 Dose: 2.5 mg Documented By: LAEXANDR Aspirin (Aspirin Enteric Coated 81 Mg Tablet.) 81 mg PO DAILY [facility] Last Admin: 03/07/23 07:45 Dose: 81 mg Documented By: ALEXANDR Atorvastatin Calcium (Atorvastatin Calcium 40 Mg Tablet) 40 mg PO BEDTIME [facility] Last Admin: 03/06/23 22:14 Dose: 40 mg Documented By: DEREK Cyanocobalamin (Cyanocobalamin (Vitamin B-12) 1,000 Mcg Tablet) 1,000 mcg PO DAILY [facility] Last Admin: 03/07/23 07:44 Dose: 1,000 mcg Documented By: ALEXANDR Dextrose (Dextrose 50 % 25 Gm/50 Ml Syringe) 25 gm IVPUSH Q15M PRN; Protocol PRN Reason: per Hypoglycemia Standing Ord. Docusate Sodium (Docusate Sodium 100 Mg Capsule) 100 mg PO DAILY PRN PRN Reason: Constipation Folic Acid (Folic Acid 1 Mg Tablet) 1 mg PO DAILY [facility] Last Admin: 03/07/23 07:45 Dose: 1 mg Documented By: ALEXANDR Glucose (Glucose Gel 15 Gm Gel..Gram.) 15 gm PO Q15M PRN; Protocol PRN Reason: per Hypoglycemia Standing Ord. Guaifenesin (Guaifenesin La 600 Mg Tab.Er.12h) 600 mg PO Q12H PRN PRN Reason: Cough Insulin Glargine (Insulin Glargine,Hum.Rec.Anlog 100 Unit/Ml 10 Ml Vial) 7 unit SUBCUT BEDTIME [facility] Last Admin: 03/06/23 22:15 Dose: 7 unit Documented By: DEREK Insulin Human Lispro (Insulin Lispro 100 Unit/Ml 3 Ml Vial) 0 unit SUBCUT QIDACHS [facility]; Protocol Last Admin: 03/07/23 11:20 Dose: Not Given Documented By: ALEXANDR Non-Admin Reason: No Insulin Coverage Metoprolol Succinate (Metoprolol Succinate Er 50 Mg Tab.Er.24h) 50 mg PO DAILY [facility]; Protocol Last Admin: 03/07/23 07:44 Dose: 50 mg Documented By: ALEXANDR Ondansetron HCl (Ondansetron Hcl 4 Mg/2 Ml Vial) 4 mg IVPUSH Q8H PRN PRN Reason: Nausea and Vomiting Pharmacy Consult (Consult Rx Perform Med Rec) 1 each MISCELLANE ONCE PRN PRN Reason: Consult order Prednisone (Prednisone 10 Mg Tablet) 10 mg PO DAILY [facility] Last Admin: 03/07/23 07:45 Dose: 10 mg Documented By: ALEXANDR Sodium Chloride (0.9 % Sodium Chloride Flush 3 Ml Syringe) 3 ml IVFLUSH QSHIFT [facility] Last Admin: 03/07/23 07:45 Dose: Not Given Documented By: ALEXANDR Non-Admin Reason: No Access Vitamin D (Cholecalciferol (Vitamin D3) 25 Mcg Tablet) 50 mcg PO DAILY [facility] Last Admin: 03/07/23 07:44 Dose: 50 mcg Documented By: ALEXANDR Labs 03/06/23 06:20 03/06/23 06:20 Labs: Laboratory Results - last 24 hr 03/06/23 03/06/23 03/06/23 15:19 18:28 22:13 POC Glucose 117 H 109 117 H 03/07/23 03/07/23 07:02 10:50 POC Glucose 156 H 126 H Assessment and Plan (1) ESRD (end stage renal disease): Status: Acute (2) Chronic kidney disease: Status: Acute Plan 57-year-old male with a PMH significant for?HTN, insulin-dependent diabetes, AFib, COPD, and ESRD on hemodialysis Sat//Sat who presents to the ED in need of dialysis. Pt recently moved to the area on Saturday from .? Patient is newly started on hemodialysis the last couple of weeks, last hemodialysis was on Saturday03/02/2023 in [place].? Patient has yet to establish any medical care in the area.? Patient currently has no medical complaints.? Patient will be admitted to the hospital under observation for hemodialysis secondary to ESRD. ESRD on hemodialysis Patient has been receiving dialysis on //Sat, started a few weeks ago Last received dialysis on 03/02/2023 in Patient received hemodialysis yesterday, potassium improved . Discussed with Nephrology patient will need hemodialysis in the morning and likely needs to be arranged for dialysis spot. HTN Continue home meds Insulin-dependent diabetes Hold home meds Sliding-scale insulin, Lantus AFib Continue metoprolol, Eliquis COPD Does not appear to be in acute exacerbation Continue home inhalers Full Code DVT Prophylaxis:? On Eliquis Ongoing hospitalization need:? hemodialysis secondary to ESRd -need HD as well as hemodialysis spot . Time Spent With Patient Time: Total time managing care of this patient today ____ minutes. Quality Stroke Does the patient have a stroke diagnosis?: No VTE Prior VTE?: No VTE Risk Level:: Medical - moderate - high VTE Device Contraindication: Treatment Not Indicated VTE Drug Contraindication: N/A - Med Ordered
[2023-03-07 16:00] VITALS: BP 129/83; PULSE 78; RESP 16; TEMP 36.2; O2SAT 97
[2023-03-07 16:14] LABS: Glucose, Whole Blood 133 mg/dL (60-115)
[2023-03-07 19:13] VITALS: BP 147/71; PULSE 57; RESP 18; TEMP 36.6; O2SAT 95
[2023-03-07] MEDS: Atorvastatin Calcium 40 MG TABLET PO (20:19)
[2023-03-07] MEDS: Insulin Glargine,Hum.rec.anlog 100 UNIT/ML 10 ML VIAL 7 UNIT SUBCUT (20:21)
[2023-03-07 20:54] LABS: Glucose, Whole Blood 95 mg/dL (60-115)
[2023-03-08] VITALS (7 sets, daily range): BP systolic 138–174; BP diastolic 65–85; PULSE 60–76; RESP 18–20; TEMP 36.3–37.6; O2SAT 90–99
[2023-03-08 07:23] LABS: Glucose, Whole Blood 105 mg/dL (60-115)
[2023-03-08] MEDS: 0.9 % Sodium Chloride Flush 3 ML SYRINGE IVFLUSH (08:28)
[2023-03-08] MEDS: Cholecalciferol (Vitamin D3) 25 MCG TABLET 50 MCG PO (08:28)
[2023-03-08] MEDS: predniSONE 10 MG TABLET PO (08:29)
[2023-03-08] MEDS: Aspirin Enteric Coated 81 MG TABLET.DR PO (08:29)
[2023-03-08] MEDS: amLODIPine Besylate 5 MG TABLET PO (08:29)
[2023-03-08] MEDS: Folic Acid 1 MG TABLET PO (08:29)
[2023-03-08] MEDS: Metoprolol Succinate ER 50 MG TAB.ER.24H PO (08:29)
[2023-03-08] MEDS: Apixaban 2.5 MG TABLET PO ×2 (08:29→22:34)
[2023-03-08] MEDS: Cyanocobalamin (Vitamin B-12) 1,000 MCG TABLET 1000 MCG PO (08:29)
--- NOTE | 2023-03-08 10:28 | MHC.CM.PN ---
CM awaits insurance and a HD slot; home is the goal and CM will continue to follow.
[2023-03-08 11:15] LABS: Glucose, Whole Blood 126 mg/dL (60-115)
--- NOTE | 2023-03-08 11:48 | P.PNIM_ITS ---
Subjective Subjective Date of Service: 03/08/23 Interval History: ESRD on hemodialysis. Review of Systems Denies any new complaints, sitting on the chair eating breakfast. No chest pain or shortness of breath or fever chills. Physical Exam Vital Signs: Vital Signs: Last Vital Signs Temp 99.5 F 03/08/23 11:31 Pulse 76 03/08/23 11:31 Resp 20 03/08/23 11:31 BP 162/85 H 03/08/23 11:31 Pulse Ox 96 03/08/23 11:31 O2 Del Method Room Air 03/08/23 11:31 O2 Flow Rate 40 03/05/23 18:02 FiO2 40 03/05/23 18:02 BMI result Body Mass Index 31.1 Appearance: Alert.? Oriented X3.? not in distress.? cvs: rrr, [id number] . res: clear to auscultation ,no rhonchii or wheezing abd: no rebound or guarding ,nt, bs present. ext pulses present , no cyanosis . neuro: axo3 , nonfocal.? Objective Data Active Medications Acetaminophen (Acetaminophen 325 Mg Tablet) 650 mg PO Q6H PRN PRN Reason: Pain, Mild (Pain Scale 1-3) Albuterol Sulfate (Albuterol Sulfate 90 Mcg 8 Gm Inhaler) 2 puff INHALE Q6H PRN PRN Reason: Shortness Of Breath Amlodipine Besylate (Amlodipine Besylate 5 Mg Tablet) 5 mg PO DAILY [facility]; Protocol Last Admin: 03/08/23 08:29 Dose: 5 mg Documented By: ALEXANDR Apixaban (Apixaban 2.5 Mg Tablet) 2.5 mg PO BID [facility] Last Admin: 03/08/23 08:29 Dose: 2.5 mg Documented By: ALEXANDR Aspirin (Aspirin Enteric Coated 81 Mg Tablet.) 81 mg PO DAILY [facility] Last Admin: 03/08/23 08:29 Dose: 81 mg Documented By: ALEXANDR Atorvastatin Calcium (Atorvastatin Calcium 40 Mg Tablet) 40 mg PO BEDTIME [facility] Last Admin: 03/07/23 20:19 Dose: 40 mg Documented By: DEREK Cyanocobalamin (Cyanocobalamin (Vitamin B-12) 1,000 Mcg Tablet) 1,000 mcg PO DAILY [facility] Last Admin: 03/08/23 08:29 Dose: 1,000 mcg Documented By: ALEXANDR Dextrose (Dextrose 50 % 25 Gm/50 Ml Syringe) 25 gm IVPUSH Q15M PRN; Protocol PRN Reason: per Hypoglycemia Standing Ord. Docusate Sodium (Docusate Sodium 100 Mg Capsule) 100 mg PO DAILY PRN PRN Reason: Constipation Folic Acid (Folic Acid 1 Mg Tablet) 1 mg PO DAILY [facility] Last Admin: 03/08/23 08:29 Dose: 1 mg Documented By: ALEXANDR Glucose (Glucose Gel 15 Gm Gel..Gram.) 15 gm PO Q15M PRN; Protocol PRN Reason: per Hypoglycemia Standing Ord. Guaifenesin (Guaifenesin La 600 Mg Tab.Er.12h) 600 mg PO Q12H PRN PRN Reason: Cough Insulin Glargine (Insulin Glargine,Hum.Rec.Anlog 100 Unit/Ml 10 Ml Vial) 7 unit SUBCUT BEDTIME [facility] Last Admin: 03/07/23 20:21 Dose: 7 unit Documented By: DEREK Insulin Human Lispro (Insulin Lispro 100 Unit/Ml 3 Ml Vial) 0 unit SUBCUT QIDACHS [facility]; Protocol Last Admin: 03/08/23 07:47 Dose: Not Given Documented By: ALEXANDR Non-Admin Reason: No Insulin Coverage Metoprolol Succinate (Metoprolol Succinate Er 50 Mg Tab.Er.24h) 50 mg PO DAILY [facility]; Protocol Last Admin: 03/08/23 08:29 Dose: 50 mg Documented By: ALEXANDR Ondansetron HCl (Ondansetron Hcl 4 Mg/2 Ml Vial) 4 mg IVPUSH Q8H PRN PRN Reason: Nausea and Vomiting Pharmacy Consult (Consult Rx Perform Med Rec) 1 each MISCELLANE ONCE PRN PRN Reason: Consult order Prednisone (Prednisone 10 Mg Tablet) 10 mg PO DAILY [facility] Last Admin: 03/08/23 08:29 Dose: 10 mg Documented By: ALEXANDR Sodium Chloride (0.9 % Sodium Chloride Flush 3 Ml Syringe) 3 ml IVFLUSH QSHIFT [facility] Last Admin: 03/08/23 08:28 Dose: 3 ml Documented By: ALEXANDR Vitamin D (Cholecalciferol (Vitamin D3) 25 Mcg Tablet) 50 mcg PO DAILY [facility] Last Admin: 03/08/23 08:28 Dose: 50 mcg Documented By: ALEXANDR Labs 03/06/23 06:20 03/06/23 06:20 Labs: Laboratory Results - last 24 hr 03/07/23 03/07/23 03/08/23 16:10 20:44 07:12 POC Glucose 133 H 95 105 03/08/23 11:06 POC Glucose 126 H Assessment and Plan (1) ESRD (end stage renal disease): Status: Acute (2) Chronic kidney disease: Status: Acute Plan 57-year-old male with a PMH significant for?HTN, insulin-dependent diabetes, AFib, COPD, and ESRD on hemodialysis Sat//Sat who presents to the ED in need of dialysis. Pt recently moved to the area on Saturday from [place], [place].? Patient is newly started on hemodialysis the last couple of weeks, last hemodialysis was on Saturday03/02/2023 in [place].? Patient has yet to establish any medical care in the area.? Patient currently has no medical complaints.? Patient will be admitted to the hospital under observation for hemodialysis secondary to ESRD. ESRD on hemodialysis Patient has been receiving dialysis on //Sat, started a few weeks ago Last received dialysis on 03/02/2023 in [place], [place] Patient received hemodialysis yesterday, potassium improved . Discussed with Nephrology patient will need hemodialysis in the morning and likely needs to be arranged for dialysis spot. HTN Continue home meds Insulin-dependent diabetes Hold home meds Sliding-scale insulin, Lantus AFib Continue metoprolol, Eliquis COPD Does not appear to be in acute exacerbation Continue home inhalers Full Code DVT Prophylaxis:? On Eliquis Ongoing hospitalization need:? hemodialysis secondary to ESRd -need HD as well as hemodialysis spot . Time Spent With Patient Time: Total time managing care of this patient today ____ minutes. Quality Stroke Does the patient have a stroke diagnosis?: No VTE Prior VTE?: No VTE Risk Level:: Medical - moderate - high VTE Device Contraindication: Treatment Not Indicated VTE Drug Contraindication: N/A - Med Ordered
[2023-03-08 15:32] LABS: Glucose, Whole Blood 115 mg/dL (60-115)
[2023-03-08 19:51] LABS: Glucose, Whole Blood 236 mg/dL (60-115)
[2023-03-08] MEDS: Atorvastatin Calcium 40 MG TABLET PO (22:34)
[2023-03-08] MEDS: Insulin Lispro 100 UNIT/ML 3 ML VIAL SUBCUT (22:35)
[2023-03-08] MEDS: Insulin Glargine,Hum.rec.anlog 100 UNIT/ML 10 ML VIAL 7 UNIT SUBCUT (22:35)
[2023-03-09 02:56] VITALS: BP 139/70; PULSE 74; RESP 14; TEMP 37.3; O2SAT 96
[2023-03-09] MEDS: Aspirin Enteric Coated 81 MG TABLET.DR PO (10:17)
[2023-03-09] MEDS: Apixaban 2.5 MG TABLET PO ×2 (10:17→20:25)
[2023-03-09] MEDS: amLODIPine Besylate 5 MG TABLET PO (10:17)
[2023-03-09] MEDS: Cholecalciferol (Vitamin D3) 25 MCG TABLET 50 MCG PO (10:18)
[2023-03-09] MEDS: predniSONE 10 MG TABLET PO (10:18)
[2023-03-09] MEDS: Cyanocobalamin (Vitamin B-12) 1,000 MCG TABLET 1000 MCG PO (10:18)
[2023-03-09] MEDS: Metoprolol Succinate ER 50 MG TAB.ER.24H PO (10:18)
[2023-03-09] MEDS: Folic Acid 1 MG TABLET PO (10:19)
[2023-03-09 11:06] VITALS: BP 113/63; PULSE 70; RESP 20; TEMP 36.4; O2SAT 97
--- NOTE | 2023-03-09 12:40 | W.PM.DNNEP ---
Subjective Subjective This patient was seen during dialysis. Interval history: ESRD on hemodialysis. Physical Exam Vital Signs: Vital Signs: Last Vital Signs Temp 97.6 F 03/09/23 11:06 Pulse 70 03/09/23 11:06 Resp 20 03/09/23 11:06 BP 113/63 03/09/23 11:06 Pulse Ox 97 03/09/23 11:06 O2 Del Method Room Air 03/09/23 11:06 O2 Flow Rate 40 03/05/23 18:02 FiO2 40 03/05/23 18:02 BMI result Body Mass Index 31.1 Const: General: cooperative, no acute distress, alert and awake Nutritional Appearance: well nourished Orientation/consciousness: patient oriented x3 Limitations: no limitations HEENT: Head: Yes normal to inspection and Yes atraumatic Ears: hearing grossly normal bilaterally and external ears normal General nose exam: Normal external nose present, no nasal discharge noted and no epistaxis Face and sinus: Yes normal facial exam, No abrasion and No laceration Mouth: Normal oral and palatal mucosa present, no drooling and no muffled voice Eyes: General: appearance normal, both eyes and all related structures Periorbital: periorbital findings normal Eyelids: Yes eyelids normal Conjunctivae: conjunctivae normal Pupils: Equal, round and reactive pupils present EOM: EOMs intact bilaterally Neck: Neck: Yes normal visual inspection, Yes full ROM and Yes no lymphadenopathy Chest: Other: dialysis catheter present to the upper right chest Resp: Effort & Inspection: normal respiratory effort and able to speak in complete sentences GI: Inspection: Yes normal to inspection Palpation (GI): Soft to palpation, not firm, nontender and no guarding Neuro: General: patient oriented x3 and moves all extremities Cranial nerves: Yes Equal, round and reactive pupils present Cognition (Neuro): normal cognition Motor exam (neuro): 5/5 motor strength present throughout Sensory Exam: Normal double simultaneous stimulation for sensation Coordination: [id number] test normal Extrem: General: Yes normal to inspection, Yes full ROM and Yes capillary refill normal Psych: Appearance: grossly normal Mental Status: mental status grossly normal Affect: normal affect Attitude: cooperative Thought process: Normal thought process present Thought content: Normal thought content present Insight: Good insight present (Psych) Assessment & Plan Assessment and plan (1) ESRD (end stage renal disease): Status: Acute (2) Chronic kidney disease: Status: Acute Plan Middle-aged man with a history of hypertension diabetes mellitus coronary disease who was recently started on hemodialysis about 3 weeks ago in [facility] has moved to the area and is in need for dialysis. At this point the exact etiology for renal failure is unclear. 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 In the meantime we will continue with hemodialysis. apparently he has no insurance coverage and this needs to be sorted out We will watch hemoglobin and use Epogen as per protocol. We will check calcium and phosphorus and use phosphate binder if indicated. Time Spent With Patient Time: Total time managing care of this patient today ____ minutes. Procedures Date of Service Date of Service: 03/09/23
--- NOTE | 2023-03-09 14:38 | HO.PM.IMPN ---
Subjective Subjective Date of Service: 03/09/23 Interval History: Feels great. Dialysis this a.m. without issue Review of Systems Denies chest pain Denies shortness of breath Denies nausea vomiting diarrhea Denies fever chills Physical Exam Vital Signs: Vital Signs: Last Vital Signs Temp 97.6 F 03/09/23 11:06 Pulse 70 03/09/23 11:06 Resp 20 03/09/23 11:06 BP 113/63 03/09/23 11:06 Pulse Ox 97 03/09/23 11:06 O2 Del Method Room Air 03/09/23 11:06 O2 Flow Rate 40 03/05/23 18:02 FiO2 40 03/05/23 18:02 BMI result Body Mass Index 31.1 Const: Other: awake alert no acute distress Resp: Other: clear to auscultation bilaterally no rales rhonchi or wheezes Cardio: Other: no S4; positive S1-S2; no S3 murmurs rubs or gallops GI: Other: soft nontender nondistended normoactive bowel sounds Extrem: Other: no edema bilateral Objective Data Active Medications Acetaminophen (Acetaminophen 325 Mg Tablet) 650 mg PO Q6H PRN PRN Reason: Pain, Mild (Pain Scale 1-3) Albuterol Sulfate (Albuterol Sulfate 90 Mcg 8 Gm Inhaler) 2 puff INHALE Q6H PRN PRN Reason: Shortness Of Breath Amlodipine Besylate (Amlodipine Besylate 5 Mg Tablet) 5 mg PO DAILY [facility]; Protocol Last Admin: 03/09/23 10:17 Dose: 5 mg Documented By: THUY Apixaban (Apixaban 2.5 Mg Tablet) 2.5 mg PO BID [facility] Last Admin: 03/09/23 10:17 Dose: 2.5 mg Documented By: THUY Aspirin (Aspirin Enteric Coated 81 Mg Tablet.) 81 mg PO DAILY [facility] Last Admin: 03/09/23 10:17 Dose: 81 mg Documented By: THUY Atorvastatin Calcium (Atorvastatin Calcium 40 Mg Tablet) 40 mg PO BEDTIME [facility] Last Admin: 03/08/23 22:34 Dose: 40 mg Documented By: BRISEIDA Cyanocobalamin (Cyanocobalamin (Vitamin B-12) 1,000 Mcg Tablet) 1,000 mcg PO DAILY [facility] Last Admin: 03/09/23 10:18 Dose: 1,000 mcg Documented By: THUY Dextrose (Dextrose 50 % 25 Gm/50 Ml Syringe) 25 gm IVPUSH Q15M PRN; Protocol PRN Reason: per Hypoglycemia Standing Ord. Docusate Sodium (Docusate Sodium 100 Mg Capsule) 100 mg PO DAILY PRN PRN Reason: Constipation Folic Acid (Folic Acid 1 Mg Tablet) 1 mg PO DAILY [facility] Last Admin: 03/09/23 10:19 Dose: 1 mg Documented By: THUY Glucose (Glucose Gel 15 Gm Gel..Gram.) 15 gm PO Q15M PRN; Protocol PRN Reason: per Hypoglycemia Standing Ord. Guaifenesin (Guaifenesin La 600 Mg Tab.Er.12h) 600 mg PO Q12H PRN PRN Reason: Cough Insulin Glargine (Insulin Glargine,Hum.Rec.Anlog 100 Unit/Ml 10 Ml Vial) 7 unit SUBCUT BEDTIME [facility] Last Admin: 03/08/23 22:35 Dose: 7 unit Documented By: BRISEIDA Insulin Human Lispro (Insulin Lispro 100 Unit/Ml 3 Ml Vial) 0 unit SUBCUT QIDACHS [facility]; Protocol Last Admin: 03/09/23 11:48 Dose: Not Given Documented By: THUY Non-Admin Reason: No Insulin Coverage Metoprolol Succinate (Metoprolol Succinate Er 50 Mg Tab.Er.24h) 50 mg PO DAILY [facility]; Protocol Last Admin: 03/09/23 10:18 Dose: 50 mg Documented By: THUY Ondansetron HCl (Ondansetron Hcl 4 Mg/2 Ml Vial) 4 mg IVPUSH Q8H PRN PRN Reason: Nausea and Vomiting Pharmacy Consult (Consult Rx Perform Med Rec) 1 each MISCELLANE ONCE PRN PRN Reason: Consult order Prednisone (Prednisone 10 Mg Tablet) 10 mg PO DAILY [facility] Last Admin: 03/09/23 10:18 Dose: 10 mg Documented By: THUY Sodium Chloride (0.9 % Sodium Chloride Flush 3 Ml Syringe) 3 ml IVFLUSH QSHIFT [facility] Last Admin: 03/09/23 09:33 Dose: Not Given Documented By: THUY Non-Admin Reason: Given in Dialysis Vitamin D (Cholecalciferol (Vitamin D3) 25 Mcg Tablet) 50 mcg PO DAILY [facility] Last Admin: 03/09/23 10:18 Dose: 50 mcg Documented By: THUY Labs 03/06/23 06:20 03/06/23 06:20 Labs: Laboratory Results - last 24 hr 03/08/23 03/08/23 03/09/23 15:28 19:47 11:04 POC Glucose 115 236 H 144 H Assessment and Plan (1) ESRD (end stage renal disease): Status: Acute (2) Hypertension: Status: Acute (3) Diabetes type 2, controlled: Status: Acute (4) COPD (chronic obstructive pulmonary disease): Status: Acute (5) Paroxysmal atrial fibrillation: Status: Acute Plan 57-year-old male with a PMH significant for?HTN, insulin-dependent diabetes, AFib, COPD, and ESRD on hemodialysis Sat//Sat who presents to the ED in need of dialysis. Pt recently moved to the area on Saturday from [place], [place].? Patient is newly started on hemodialysis the last couple of weeks, last hemodialysis was on Saturday03/02/2023 in [place].? Patient has yet to establish any medical care in the area.? Patient currently has no medical complaints.? Patient will be admitted to the hospital under observation for hemodialysis secondary to ESRD. 1.ESRD on hemodialysis ---Sat... awaiting insurance / seat at outpatient dialysis - renal following for HD -follow renals/divalents 2.HTN - acceptable control on current therapies - adjust as indicated 3.Diabetes mellitus type 2 - acceptable control on current therapies -lispro correctional scale -adjust as indicated 4.Paroxysmal AFib - concurrently sinus rhythm - continue beta-blockade - Eliquis 5.COPD - well compensated - continue outpatient therapies full code Eliquis Requires ongoing hospitalization for dialysis pending arrangement of outpatient dialysis Time Spent With Patient Time: Total time managing care of this patient today ____ minutes. Quality Stroke Does the patient have a stroke diagnosis?: No VTE Prior VTE?: No VTE Risk Level:: Medical - moderate - high VTE Device Contraindication: Treatment Not Indicated VTE Drug Contraindication: N/A - Med Ordered
[2023-03-09 15:00] VITALS: BP 146/73; PULSE 62; RESP 20; TEMP 36.4; O2SAT 96
[2023-03-09] MEDS: Insulin Lispro 100 UNIT/ML 3 ML VIAL SUBCUT ×2 (17:52→20:26)
[2023-03-09 19:22] VITALS: BP 119/66; PULSE 66; RESP 20; TEMP 36.4; O2SAT 98
[2023-03-09] MEDS: Atorvastatin Calcium 40 MG TABLET PO (20:25)
[2023-03-09] MEDS: Insulin Glargine,Hum.rec.anlog 100 UNIT/ML 10 ML VIAL 7 UNIT SUBCUT (20:25)
[2023-03-09 23:30] VITALS: BP 145/76; PULSE 62; RESP 18; TEMP 36.7; O2SAT 97
[2023-03-10 03:48] VITALS: BP 151/77; PULSE 65; RESP 18; TEMP 36.9; O2SAT 95
[2023-03-10 07:15] VITALS: BP 145/70; PULSE 70; RESP 20; TEMP 36.8; O2SAT 96
[2023-03-10] MEDS: Apixaban 2.5 MG TABLET PO ×2 (08:58→21:14)
[2023-03-10] MEDS: Cholecalciferol (Vitamin D3) 25 MCG TABLET 50 MCG PO (08:58)
[2023-03-10] MEDS: Metoprolol Succinate ER 50 MG TAB.ER.24H PO (08:58)
[2023-03-10] MEDS: Cyanocobalamin (Vitamin B-12) 1,000 MCG TABLET 1000 MCG PO (08:58)
[2023-03-10] MEDS: Aspirin Enteric Coated 81 MG TABLET.DR PO (08:58)
[2023-03-10] MEDS: amLODIPine Besylate 5 MG TABLET PO (08:58)
[2023-03-10] MEDS: predniSONE 10 MG TABLET PO (08:58)
[2023-03-10] MEDS: Folic Acid 1 MG TABLET PO (08:58)
[2023-03-10 11:05] VITALS: BP 148/76; PULSE 61; RESP 20; TEMP 36.9; O2SAT 97
--- NOTE | 2023-03-10 11:16 | HO.PM.IMPN ---
Subjective Subjective Date of Service: 03/10/23 Interval History: no acute issues overnight. remains tolerant of therapies Review of Systems Denies chest pain Denies shortness of breath Denies nausea vomiting diarrhea Denies fever chills Physical Exam Vital Signs: Vital Signs: Last Vital Signs Temp 98.4 F 03/10/23 11:05 Pulse 61 03/10/23 11:05 Resp 20 03/10/23 11:05 BP 148/76 H 03/10/23 11:05 Pulse Ox 97 03/10/23 11:05 O2 Del Method Room Air 03/10/23 11:05 O2 Flow Rate 40 03/05/23 18:02 FiO2 40 03/05/23 18:02 BMI result Body Mass Index 31.1 Const: Other: awake alert no acute distress Resp: Other: clear to auscultation bilaterally no rales rhonchi or wheezes Cardio: Other: no S4; positive S1-S2; no S3 murmurs rubs or gallops GI: Other: soft nontender nondistended normoactive bowel sounds Extrem: Other: no edema bilateral Objective Data Active Medications Acetaminophen (Acetaminophen 325 Mg Tablet) 650 mg PO Q6H PRN PRN Reason: Pain, Mild (Pain Scale 1-3) Albuterol Sulfate (Albuterol Sulfate 90 Mcg 8 Gm Inhaler) 2 puff INHALE Q6H PRN PRN Reason: Shortness Of Breath Amlodipine Besylate (Amlodipine Besylate 5 Mg Tablet) 5 mg PO DAILY [facility]; Protocol Last Admin: 03/10/23 08:58 Dose: 5 mg Documented By: THUY Apixaban (Apixaban 2.5 Mg Tablet) 2.5 mg PO BID [facility] Last Admin: 03/10/23 08:58 Dose: 2.5 mg Documented By: THUY Aspirin (Aspirin Enteric Coated 81 Mg Tablet.) 81 mg PO DAILY [facility] Last Admin: 03/10/23 08:58 Dose: 81 mg Documented By: THUY Atorvastatin Calcium (Atorvastatin Calcium 40 Mg Tablet) 40 mg PO BEDTIME [facility] Last Admin: 03/09/23 20:25 Dose: 40 mg Documented By: ALEXIS Cyanocobalamin (Cyanocobalamin (Vitamin B-12) 1,000 Mcg Tablet) 1,000 mcg PO DAILY [facility] Last Admin: 03/10/23 08:58 Dose: 1,000 mcg Documented By: THUY Dextrose (Dextrose 50 % 25 Gm/50 Ml Syringe) 25 gm IVPUSH Q15M PRN; Protocol PRN Reason: per Hypoglycemia Standing Ord. Docusate Sodium (Docusate Sodium 100 Mg Capsule) 100 mg PO DAILY PRN PRN Reason: Constipation Folic Acid (Folic Acid 1 Mg Tablet) 1 mg PO DAILY [facility] Last Admin: 03/10/23 08:58 Dose: 1 mg Documented By: THUY Glucose (Glucose Gel 15 Gm Gel..Gram.) 15 gm PO Q15M PRN; Protocol PRN Reason: per Hypoglycemia Standing Ord. Guaifenesin (Guaifenesin La 600 Mg Tab.Er.12h) 600 mg PO Q12H PRN PRN Reason: Cough Insulin Glargine (Insulin Glargine,Hum.Rec.Anlog 100 Unit/Ml 10 Ml Vial) 7 unit SUBCUT BEDTIME [facility] Last Admin: 03/09/23 20:25 Dose: 7 unit Documented By: ALEXIS Insulin Human Lispro (Insulin Lispro 100 Unit/Ml 3 Ml Vial) 0 unit SUBCUT QIDACHS [facility]; Protocol Last Admin: 03/10/23 11:06 Dose: Not Given Documented By: THUY Non-Admin Reason: No Insulin Coverage Metoprolol Succinate (Metoprolol Succinate Er 50 Mg Tab.Er.24h) 50 mg PO DAILY [facility]; Protocol Last Admin: 03/10/23 08:58 Dose: 50 mg Documented By: THUY Ondansetron HCl (Ondansetron Hcl 4 Mg/2 Ml Vial) 4 mg IVPUSH Q8H PRN PRN Reason: Nausea and Vomiting Pharmacy Consult (Consult Rx Perform Med Rec) 1 each MISCELLANE ONCE PRN PRN Reason: Consult order Prednisone (Prednisone 10 Mg Tablet) 10 mg PO DAILY [facility] Last Admin: 03/10/23 08:58 Dose: 10 mg Documented By: THUY Sodium Chloride (0.9 % Sodium Chloride Flush 3 Ml Syringe) 3 ml IVFLUSH QSHIFT [facility] Last Admin: 03/10/23 09:02 Dose: Not Given Documented By: THUY Non-Admin Reason: No Access Vitamin D (Cholecalciferol (Vitamin D3) 25 Mcg Tablet) 50 mcg PO DAILY [facility] Last Admin: 03/10/23 08:58 Dose: 50 mcg Documented By: THUY Labs 03/06/23 06:20 03/06/23 06:20 Labs: Laboratory Results - last 24 hr 03/09/23 03/09/23 03/10/23 15:54 19:51 06:58 POC Glucose 172 H 181 H 92 03/10/23 10:59 POC Glucose 100 Assessment and Plan (1) ESRD (end stage renal disease): Status: Acute (2) Hypertension: Status: Acute (3) Diabetes type 2, controlled: Status: Acute (4) COPD (chronic obstructive pulmonary disease): Status: Acute (5) Paroxysmal atrial fibrillation: Status: Acute Plan 57-year-old male with a PMH significant for?HTN, insulin-dependent diabetes, AFib, COPD, and ESRD on hemodialysis Sat//Sat who presents to the ED in need of dialysis. Pt recently moved to the area on Saturday from [place], [place].? Patient is newly started on hemodialysis the last couple of weeks, last hemodialysis was on Saturday03/02/2023 in [place].? Patient has yet to establish any medical care in the area.? Patient currently has no medical complaints.? Patient will be admitted to the hospital under observation for hemodialysis secondary to ESRD. 1.ESRD on hemodialysis ---Sat... awaiting insurance / seat at outpatient dialysis - renal following for HD -follow renals/divalents 2.HTN - acceptable control on current therapies - adjust as indicated 3.Diabetes mellitus type 2 - acceptable control on current therapies -lispro correctional scale -adjust as indicated 4.Paroxysmal AFib - concurrently sinus rhythm... DC telemetry - continue beta-blockade - Eliquis 5.COPD - well compensated - continue outpatient therapies full code Eliquis Requires ongoing hospitalization for dialysis pending arrangement of outpatient dialysis Time Spent With Patient Time: Total time managing care of this patient today ____ minutes. Quality Stroke Does the patient have a stroke diagnosis?: No VTE Prior VTE?: No VTE Risk Level:: Medical - moderate - high VTE Device Contraindication: Treatment Not Indicated VTE Drug Contraindication: N/A - Med Ordered
[2023-03-10 15:26] VITALS: BP 144/68; PULSE 64; RESP 20; TEMP 36.7; O2SAT 97
[2023-03-10] MEDS: Insulin Lispro 100 UNIT/ML 3 ML VIAL SUBCUT ×2 (16:47→21:14)
[2023-03-10 19:13] VITALS: BP 137/67; PULSE 70; RESP 18; TEMP 36.8; O2SAT 96
[2023-03-10] MEDS: Insulin Glargine,Hum.rec.anlog 100 UNIT/ML 10 ML VIAL 7 UNIT SUBCUT (21:14)
[2023-03-10] MEDS: Atorvastatin Calcium 40 MG TABLET PO (21:14)
[2023-03-11] VITALS: BP 144/68; PULSE 78; RESP 20; TEMP 36.8; O2SAT 97
[2023-03-11 03:37] VITALS: BP 148/72; PULSE 72; RESP 20; TEMP 36.6; O2SAT 93
[2023-03-11 07:26] VITALS: BP 161/72; PULSE 71; RESP 20; TEMP 36.6; O2SAT 96
[2023-03-11] MEDS: Cholecalciferol (Vitamin D3) 25 MCG TABLET 50 MCG PO (08:10)
[2023-03-11] MEDS: Cyanocobalamin (Vitamin B-12) 1,000 MCG TABLET 1000 MCG PO (08:10)
[2023-03-11] MEDS: amLODIPine Besylate 5 MG TABLET PO (08:10)
[2023-03-11] MEDS: Aspirin Enteric Coated 81 MG TABLET.DR PO (08:10)
[2023-03-11] MEDS: Apixaban 2.5 MG TABLET PO (08:10)
[2023-03-11] MEDS: Metoprolol Succinate ER 50 MG TAB.ER.24H PO (08:10)
[2023-03-11] MEDS: predniSONE 10 MG TABLET PO (08:10)
[2023-03-11] MEDS: Folic Acid 1 MG TABLET PO (08:10)
[2023-03-11] MEDS: guaiFENesin LA 600 MG TAB.ER.12H PO (08:10)
[2023-03-11] MEDS: Albuterol Sulfate 90 MCG 8 GM INHALER 2 PUFF INHALE (09:02)
[2023-03-11 09:06] VITALS: PULSE 77; RESP 16; O2SAT 94
--- NOTE | 2023-03-11 09:24 | MHC.CM.PN ---
Patient has [employer] # [id number]. CM will inform [facility].
[2023-03-11 11:21] VITALS: BP 156/68; PULSE 63; RESP 20; TEMP 36.8; O2SAT 98
--- NOTE | 2023-03-11 12:22 | MHC.CM.PN ---
CM received a call from [facility] ([facility]) who is trying to secure a HD slot for Patient. CM provided [facility] with Patient's [employer] # and CM will continue to follow.
--- NOTE | 2023-03-11 13:51 | MHC.CM.PN ---
Per Corrie @ [facility]( [phone]), Patient has a HD slot there Q , arriving at 6 AM. Corrie is waiting for corporate approval for Patient to start his community HD tomorrow; if this is not possible, Patient will not be able to start his community HD until , 03/13/2023. is aware and CM will follow.
--- NOTE | 2023-03-11 14:42 | MHC.CM.PN ---
Per Corrie @ [facility], Patient can start his community HD with them tomorrow and therefor Patient can be dc to home today, self care. has been made aware.
--- NOTE | 2023-03-11 15:14 | PM.DS ---
DS: Providers Provider Date of Service: 03/11/23 Date of admission: 03/05/23 13:16 Date of discharge: 03/11/23 Primary care physician: None Physician Consults: 03/05/23 13:16 Consult to Nephrology Routine Consulting Provider: Matthew Alvarado Reason for consultation: Pt on dialysis DS: Diagnosis Discharge Diagnosis (1) ESRD (end stage renal disease): Status: Acute (2) Hypertension: Status: Acute (3) Diabetes type 2, controlled: Status: Acute (4) COPD (chronic obstructive pulmonary disease): Status: Acute (5) Paroxysmal atrial fibrillation: Status: Acute DS: Summary Hospital Course Hospital Course: Pt is a 57-year-old male with a PMH significant for?HTN, insulin-dependent diabetes, AFib, COPD, and ESRD on hemodialysis Sat//Sat who presents to the ED in need of dialysis. Pt recently moved to the area on Saturday from [place], [place].? Patient is newly started on hemodialysis the last couple of weeks, last hemodialysis was on Saturday03/02/2023 in [place].? Patient has yet to establish any medical care in the area.? Patient currently has no medical complaints.? Denies chest pain/pressure, palpitations.? No headache, vision changes.? Denies shortness of breath.? No tremors, seizures.? Denies fever, chills nausea, vomiting, diarrhea, abdominal pain. In the ED labs were significant for macrocytic anemia of H&H 9.4/32.4, potassium 5.3, BUN 61, creatinine 3.65. EKG demonstrated sinus rhythm with PVCs and a right bundle branch block with QTc of 497. Pt will be admitted to the hospital for treatment of urgent dialysis. Hospital Course Patient admitted to hospital urgently dialyzed. Seen in consultation by Nephrology and case management. Insurance arrangements clarified and patient now has an outpatient spot Saturday. At this point in time he is safe to discharge and start dialysis in a.m. Time Spent with Patient Time attestation: Total time managing care of this patient today ____ minutes. Discharge coordination time: Greater than 30 minutes Quality: Safe Use of Opioids Does Pt have an Active Cancer Diagnosis on the Problem List?: No Quality: Stroke Does the patient have a stroke diagnosis?: No Physical Exam Vital Signs: Vital Signs: Last Vital Signs Temp 98.2 F 03/11/23 11:21 Pulse 63 03/11/23 11:21 Resp 20 03/11/23 11:21 BP 156/68 H 03/11/23 11:21 Pulse Ox 98 03/11/23 11:21 O2 Del Method Room Air 03/11/23 11:21 O2 Flow Rate 40 03/05/23 18:02 FiO2 40 03/05/23 18:02 BMI result Body Mass Index 31.1 Const: Other: awake alert no acute distress Resp: Other: clear to auscultation bilaterally no rales rhonchi or wheezes Cardio: Other: no S4; positive S1-S2; no S3 murmurs rubs or gallops GI: Other: soft nontender nondistended normoactive bowel sounds Extrem: Other: no edema bilateral DS: Data Data Completed and Pending Labs on day of discharge: Laboratory Results - last 24 hr 03/10/23 03/10/23 03/11/23 16:00 20:39 07:28 POC Glucose 176 H 195 H 95 03/11/23 11:20 POC Glucose 125 H Discharge Plan Discharge Anticipated Discharge Date/Time: 03/11/23 15:10 Patient Disposition: Home, Self-Care Discharge Diagnosis: end-stage renal disease on hemodialysis Referrals: Physician,None [Primary Care Provider] - 1 Week Discharge Medications: Continued atorvastatin 40 mg Tablet 40 mg PO BEDTIME prednisone 10 mg Tablet 10 mg PO DAILY metoprolol succinate 50 mg Tablet Extended Release 24 Hr 50 mg PO DAILY cyanocobalamin (vitamin B-12) 1,000 mcg Tablet 1,000 mcg PO DAILY amlodipine 5 mg Tablet 5 mg PO DAILY aspirin 81 mg Tablet,Delayed Release (Dr/Ec) 81 mg PO DAILY folic acid 1 mg Tablet 1 mg PO DAILY albuterol sulfate [ProAir HFA] 90 mcg/actuation Hfa Aerosol Inhaler 2 puff INHALATION Q6H PRN (Reason: Shortness Of Breath) insulin detemir U-100 100 unit/mL Solution 10 unit SUBCUT BEDTIME cholecalciferol (vitamin D3) 50 mcg (2,000 unit) Tablet 50 mcg PO DAILY Eliquis 2.5 mg Tablet 2.5 mg PO BID guaifenesin 600 mg Tablet Extended Release 12hr 600 mg PO Q12H PRN (Reason: Cough) Discharge Orders: Discharge Order (Routine); Ordered 03/11/23 Ordered By: Hu Mccarthy Diet: Advance to usual diet Activity on Discharge: As tolerated Stand Alone Forms: Patient Portal Discharge page Care Plan Goals: continue all medicines as taken previously Health Concerns: dialysis Saturday at [facility] Plan of Treatment: establish with new PCP Assessment: see discharge summary
== END 2023-03-11 15:25 | disposition home or self-care (01) ==
LOC: HO.ED 12:45 → HO.EDOVER 13:52 → HO.IMC 14:29
PROVIDERS: Internal Medicine; Internal Medicine Hypertension Specialist; Admitting Provider Student in an Organized Health Care Education/Training Program; Emergency Provider Emergency Medicine; Visit Provider Hospitalist
DX: E11.22 Type 2 diabetes mellitus with diabetic chronic kidney disease (principal); I12.0 Hypertensive chronic kidney disease with stage 5 chronic kidney disease or end stage renal disease; N18.6 End stage renal disease; Z99.2 Dependence on renal dialysis; D50.9 Iron deficiency anemia, unspecified; I45.10 Unspecified right bundle-branch block; I48.0 Paroxysmal atrial fibrillation; J44.9 Chronic obstructive pulmonary disease, unspecified; Z87.891 Personal history of nicotine dependence; Z79.4 Long term (current) use of insulin; Z79.01 Long term (current) use of anticoagulants; Z79.899 Other long term (current) drug therapy
CPT/HCPCS: 36415; 80048; 82947; 83735; 85025; 85027; 85610; 86704; 86706; 87340; 90999; 93005; 94640; 99222; 99285